=== PATIENT | male | born 1965 | race Caucasian/White ===

== ENCOUNTER 2017-08-05 08:29 | Emergency (ER) | payer OTHER ==
[2017-08-05 08:35] VITALS: TEMP 97.7
--- NOTE | 2017-08-05 08:45 | EDPHY ---
H & P Stated Complaint: "think i have a kidney stone" R flank pain x 45 min Time Seen by Provider: 08/05/17 08:45 - Personal History Tetanus Vaccine Date: 03/22/12 - Medical/Surgical History Hx Asthma: No Hx Chronic Respiratory Disease: No Hx Diabetes: No Hx Cardiac Disease: No Hx Renal Disease: No Hx Cirrhosis: No Hx Alcoholism: No Hx HIV/AIDS: No Hx Splenectomy or Spleen Trauma: No Other PMH: kidney stones - Social History Smoking Status: Never smoked Constitutional: Initial Vital Signs Temperature (C) 36.5 C 08/05/17 08:32 Heart Rate 70 08/05/17 08:32 Respiratory Rate 16 08/05/17 08:32 Blood Pressure 124/90 H 08/05/17 08:32 O2 Sat (%) 97 08/05/17 08:32 O2 Delivery Mode Room Air Allergies/Adverse Reactions: No Known Allergies Allergy (Verified 06/05/16 14:23) Home Medications: Medication Instructions Recorded Ciprofloxacin [Cipro] 500 mg PO BID #30 tab 08/05/17 Tamsulosin HCl [Flomax 0.4 MG (*)] 0.4 mg PO DAILY #10 cap 08/05/17 Medical Decision Making - Diagnostics Imaging Results: Imaging Impressions Abdomen/Pelvis CT 08/05/17 09:03 Impression: 1. No evidence of urinary tract calculus. 2. No significant abnormality identified within the abdomen and pelvis. 3. Incidental liver cysts. Findings discussed with Berhane Beard MD at 9:40 hour, 08/05/2017. Attention: This CT examination is specifically designed to evaluate patients who are clinically suspected of having acute obstructive uropathy. This examination does not use radiographic contrast, and as such, provides only a limited evaluation of the abdomen, pelvis and retroperitoneum. If there is further clinical suspicion for pathological conditions other than obstructive uropathy, a complete CT evaluation of the abdomen and pelvis utilizing intravenous, oral, and rectal contrast should be considered. Imaging: Discussed imaging studies w/ scallop cutter machine Radiologist, I viewed and interpreted images myself ED Course/Re-evaluation: CHIEF COMPLAINT: Kidney stones HISTORY OF PRESENT ILLNESS: The patient is a 52 y/o male with history of one prior episode of kidney stones complaining of acute right flank pain that began acutely 1.5 hours prior to assessment. He woke up feeling normal, but developed a sudden ache in his right flank just before breakfast. His pain has waxed and waned since then between a 5 and a 1 in severity. He has associated urinary urgency, but has only been able to produce "drips" when he tried to urinate a couple times this morning following normal urination upon waking. He noticed chills en route to the ED but denies fever, vomiting, diarrhea. He also says he' s noticed blood in his semen intermittently for the last several months that is being evaluated by his PCP. He's also had mild URI symptoms for the last week and has been using Mucinex for this. REVIEW OF SYSTEMS: A 10 point review of systems was performed and is negative with the exception of the elements mentioned in the history of present illness. PHYSICAL EXAM: HR, BP, O2 Sat, RR. Temp noted General Appearance: Alert, well hydrated, appropriate, and non-toxic appearing. Head: Atraumatic without scalp tenderness or obvious injury Eyes: Pupils equal, round, reactive to light and accommodation, EOMI, no trauma , no injection. Nose: Atraumatic, no rhinorrhea, clear. Throat: Mucus membranes moist. Neck: Supple, nontender, no lymphadenopathy. Respiratory: No retractions, no distress, no wheezes, and no accessory muscle use. Lungs are clear to auscultation bilaterally. Cardiovascular: Regular rate and rhythm, no murmurs, rubs, or gallops. Good capillary refill all extremities. Gastrointestinal: Abdomen is soft, nontender, non-distended, no masses, no rebound, no guarding, no peritoneal signs. Musculoskeletal: Normal active ROM of all extremities, atraumatic. Right CVA tenderness. Neurological: Alert, appropriate, and interactive. The patient has non-focal cranial nerves, motor, sensory, and cerebellar exam. Skin: No rashes, good turgor, no nodules on palpation. Past medical history: Kidney stones Past surgical history: Denies Family history: Grandfather had prostate cancer Social history: . Lives in [place]. Employed. DIAGNOSTICS/PROCEDURES/CRITICAL CARE TIME: Abdominal CT: no kidney stone, normal prostate DIFFERENTIAL DIAGNOSIS: The differential diagnosis for the patient's flank pain included but was not limited to prostatitis, musculoskeletal causes, kidney stone, pyelonephritis, shingles, diverticulitis, appendicitis, and aortic aneurysm. MEDICAL DECISION MAKING: This is a healthy 52 y/o male who presents with acute onset right flank pain with associated urinary urgency and hesitancy. He has right CVA tenderness on exam and is afebrile here. Urinary symptoms could indicate prostate issue rather than kidney stone, which is more likely given patient's recent blood in his semen. Plan for IV, labs, abdominal CT, and symptom management. 30mg IV Toradol, 1mg IV Dilaudid, 4mg IV Zofran, 1L IV NS administered for symptoms. Reassessed patient and discussed work up. He has minimal pain at this time. His CT is normal with no evidence for kidney stone or enlarged prostate. His presentation is most consistent with prostatitis. He will receive scripts for Cipro and Flomax after his first dose here and referral to urology for follow up. Return precautions discussed. He is comfortable with this plan. - Data Points Laboratory Results: Laboratory Results 08/05/17 08:57 08/05/17 08:57 08/05/17 08/05/17 08/05/17 08:57 08:57 08:40 WBC 5.87 10^3/uL 10^3/uL (3.80-9.50) RBC 5.07 10^6/uL 10^6/uL (4.40-6.38) Hgb 16.7 g/dL g/dL (13.7-17.5) Hct 47.1 % % (40.0-51.0) MCV 92.9 fL fL (81.5-99.8) MCH 32.9 pg pg (27.9-34.1) MCHC 35.5 g/dL g/dL (32.4-36.7) RDW 12.4 % % (11.5-15.2) Plt Count 193 10^3/uL 10^3/uL (150-400) MPV 9.9 fL fL (8.7-11.7) Neut % (Auto) 57.7 % % (39.3-74.2) Lymph % (Auto) 22.5 % % (15.0-45.0) [place] % (Auto) 18.1 % H % (4.5-13.0) Eos % (Auto) 1.0 % % (0.6-7.6) Baso % (Auto) 0.5 % % (0.3-1.7) Nucleat RBC Rel Count 0.0 % % (0.0-0.2) Absolute Neuts (auto) 3.39 10^3/uL 10^3/uL (1.70-6.50) Absolute Lymphs (auto) 1.32 10^3/uL 10^3/uL (1.00-3.00) Absolute Monos (auto) 1.06 10^3/uL H 10^3/uL (0.30-0.80) Absolute Eos (auto) 0.06 10^3/uL 10^3/uL (0.03-0.40) Absolute Basos (auto) 0.03 10^3/uL 10^3/uL (0.02-0.10) Absolute Nucleated RBC 0.00 10^3/uL 10^3/uL (0-0.01) Immature Gran % 0.2 % % (0.0-1.1) Immature Gran # 0.01 10^3/uL 10^3/uL (0.00-0.10) Sodium 139 mEq/L mEq/L (135-145) Potassium 4.5 mEq/L mEq/L (3.5-5.2) Chloride 100 mEq/L mEq/L (97-110) Carbon Dioxide 24 mEq/l mEq/l (22-31) Anion Gap 15 mEq/L mEq/L (8-16) BUN 16 mg/dL mg/dL (7-23) Creatinine 1.2 mg/dL mg/dL (0.7-1.3) Estimated GFR > 60 Glucose 111 mg/dL H mg/dL (70-100) Calcium 9.7 mg/dL mg/dL (8.5-10.4) Urine Color YELLOW Urine Appearance HAZY Urine pH 5.0 (5.0-7.5) Ur Specific [place] 1.025 (1.002-1.030) Urine Protein NEGATIVE (NEGATIVE) Urine Ketones TRACE H (NEGATIVE) Urine Blood NEGATIVE (NEGATIVE) Urine Nitrate NEGATIVE (NEGATIVE) Urine Bilirubin NEGATIVE (NEGATIVE) Urine Urobilinogen 2.0 EU H EU (0.2-1.0) Ur Leukocyte Esterase NEGATIVE (NEGATIVE) Urine Glucose NEGATIVE (NEGATIVE) Medications Given: Discontinued Medications Hydromorphone HCl (Dilaudid) 1 mg IVP EDNOW ONE Stop: 01/12/18 09:03 Last Admin: 08/05/17 09:07 Dose: 1 mg Sodium Chloride (Ns) 1,000 mls @ 0 mls/hr IV EDNOW ONE; Wide Open PRN Reason: Protocol Stop: 08/05/17 09:03 Last Admin: 08/05/17 09:08 Dose: 1,000 mls Ketorolac Tromethamine (Toradol) 30 mg IVP EDNOW ONE Stop: 08/05/17 09:03 Last Admin: 08/05/17 09:08 Dose: 30 mg Ondansetron HCl (Zofran) 4 mg IVP EDNOW ONE Stop: 08/05/17 09:03 Last Admin: 08/05/17 09:08 Dose: 4 mg Departure - Departure Disposition: Home, Routine, Self-Care Clinical Impression: Urinary urgency, Urinary frequency Prostatitis Qualifiers: Prostatitis type: acute Qualified Code(s): N41.0 - Acute prostatitis Condition: Good Instructions: Ciprofloxacin (By mouth), Tamsulosin (By mouth), Prostatitis (ED) , Urinary Urgency and Frequency (DC) Additional Instructions: 1. Take Cipro as prescribed for prostate infection. Be sure to complete the entire prescription. 2. Take Flomax as prescribed for urinary urgency and hesitancy. 3. Take 800mg ibuprofen every 8 hours for pain and inflammation. You received a similar medication here (Toradol), so you can take another dose in about 8 hours. 4. Follow up with urologist in the next week. 5. Return to the ED for inability to urinate, severe pain, or other worsening of condition. Referrals: Toño Terry MD [Medical Doctor] - As per Instructions Prescriptions: Ciprofloxacin [Cipro] 500 mg PO BID #30 tab Tamsulosin HCl [Flomax 0.4 MG (*)] 0.4 mg PO DAILY #10 cap Report Scribed for: Berhane Beard Report Scribed by: Lisy Nunez Date of Report: 08/05/17 Time of Report: 08:52
[2017-08-05] MEDS ORDERED: HYDROmorphONE/DILAUDID 1 MG/ML INJ IVP ONE (09:02)
[2017-08-05] MEDS ORDERED: NS 1,000 ML IV ONE (09:02)
[2017-08-05] MEDS ORDERED: ONDANSETRON 4 MG/2 ML VIAL IVP ONE (09:02)
[2017-08-05] MEDS ORDERED: KETOROLAC 30 MG/1 ML SDV IVP ONE (09:02)
[2017-08-05 09:10] LABS: PLATELET COUNT 193 10^3/uL (150-400)
[2017-08-05 09:45] VITALS: BP 120/60; PULSE 64; RESP 14; O2SAT 94
[2017-08-05] MEDS ORDERED: TAMSULOSIN HCL 0.4 MG CAP PO ONE (09:45)
[2017-08-05] MEDS: CIPROFLOXACIN 500 MG TAB PO ONE ×2 (10:08→10:09)
== END 2017-08-05 10:18 | disposition home or self-care (01) ==
DX: N41.0 Acute prostatitis (principal); E86.9 Volume depletion, unspecified
CPT/HCPCS: 96374; J1170; J1885; J2405